=== PATIENT | female | born 2000 | race Caucasian/White ===

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

== ENCOUNTER → 2023-04-27 | Outpatient (CLI) | payer BC ==
[~2023-04-27] MED LIST: CEPHALEXIN500 M1 PO
== END ==
LOC: COL.RAD 09:24
DX: R10.2 Pelvic and perineal pain (principal)